=== PATIENT | female | born 1960 | race Caucasian/White ===

== ENCOUNTER 2024-07-22 12:53 | Emergency (ER) | payer OTHER, SELFPAY ==
[2024-07-22 13:10] VITALS: BP 169/91
--- NOTE | 2024-07-22 13:33 | ED.MUSCINJ ---
HPI-Injury
General
Chief Complaint: Fall
Source: patient and family
Exam Limitations: none
Time Seen by Provider: 07/22/24 13:15
Nursing documentation reviewed up to this point in time: agreed with
History of Present Illness-Injury
Is this injury a work related problem?: No
Is pt an associate of [facility]?: No
Initial Injury comments:
63-year-old female presents with left shoulder pain slip and fall last evening she fell into a door jam hit the right side of her head on the door jam and also injured her left shoulder having pain decreased motion of her left shoulder also some
pain in her neck no headache no nausea no vomiting, no blood thinners no alcohol many years ago she had an herniated disc in her neck with pain to the right treated with physical therapy
Past History
Past History
ED Past Medical History: None
ED Past Surgical History: None
Social History
Tobacco: Smoker
Alcohol: None
Drug: None
Living: with family
Review of Systems
Review of Systems
All Other Systems: Not applicable
Constitutional: Denies fever
Respiratory: Reports no symptoms
Cardiac: Reports no symptoms
ABD/GI: Reports no symptoms
Musculoskeletal: Reports joint pain and neck pain
Skin: Reports no symptoms
Neurological: Denies dizzy, headache or weakness
Endocrine: Reports no symptoms
Phy Exam
Physical Exam
Physical Exam:
Physical Exam
General: no apparent distress, not acutely ill
Neck: Superficial abrasion over the right forehead, no midline neck pain, no tongue bite
Heart: s1/s2 regular rate and rhythm, no murmur. equal radial pulses.
Lungs: no acute respiratory distress. clear bilaterally
Neuro: alert and oriented. no focal neurological deficits
Skin: no rash
Psychiatric: well kept. interactive and cooperative
Extremities: Pain with extension and abduction of the left shoulder no bony crepitance able to extend at the elbows bilaterally open cut examiner strengths equal bilaterally
Injury Course
Orders/Labs/Results
Orders:
Orders
07/22/24 12:55
Shoulder, Left 2 View CR [CR Shoulder - Left Min 2 View*] Urgent
Comment:
Reason For Exam: pain, decreased ROM
07/22/24 13:27
Oxycodone/Acetaminophen [Percocet 5/325] 1 tablet PO NOW STA
CR Cervical Spine 2 or 3 Vw Urgent
Comment:
Reason For Exam: fall into door
07/22/24 14:11
Sling Left-Treatment ONCE
Procedures
Splint Check
Splint checked by provider?: No
Splinting/Sling Placement
Left Arm:
Procedure completed by: rn
Pre-splint extermity exam: neurovascular intact
Splint checked by provider?: No
Type of sling: sling fitted
MDM/Problems Addressed
Differential Diagnosis Includes:
Shoulder contusion, humerus fracture, shoulder dislocation AC separation radiculopathy, referred pain from cervical spine
MDM/Problems Addressed:
Shoulder trauma head trauma
Chronic conditions affecting care:
Neck pain
Acute Exacerbation and/or Progression of Chronic Illness:
Neck pain
*Radiology
Radiology exam reviewed: preliminary read by ED provider
*Pulse Oximetry
Patient hypoxic: no
*Critical Care Note
Total Time (30-74mins, 75-104mins- exclusive of procedures): Not Applicable
Update Note
Update Note:
Update x-rays noted no fracture seen, will mobilize with early exercises to prevent frozen shoulder follow-up PCP orthopedics
ED Attending Note
-
Portions of this chart may have been created with voice recognition software.� Occasional wrong word or��sound alike� substitutions may have occurred due to the inherent limitations of voice recognition software.
Discharge Plan
Departure
Prescriptions:
No Action
atorvastatin 20 mg tablet
20 mg PO HS
amlodipine 5 mg tablet
5 mg PO HS
levothyroxine 50 mcg tablet
50 mcg PO DAILY
duloxetine 60 mg capsule,delayed release(DR/EC)
60 mg PO HS
lidocaine [Aspercreme (lidocaine)] 4 % Adhesive Patch,Medicated
1 patch topical DAILY Qty: 10 0RF
omeprazole 40 mg capsule,delayed release(DR/EC)
40 mg PO BID Qty: 60 0RF
Referrals:
Talon Conway MD [Family Provider] -
Interventions
Interventions:
*Risk Screen - Suicide Last Done: 07/22/24 13:10
*General Assessment Last Done: 07/22/24 13:10
*Neglect/Abuse Screening Last Done: 07/22/24 13:10
*ED COVID-19 Vaccine History Last Done: 07/22/24 13:47
ED-Musculoskeletal Assessment Last Done: 07/22/24 13:47
ED- Neurological Assessment Last Done: 07/22/24 13:47
ED-Skin Assessment Last Done: 07/22/24 13:47
Discharge Date and Time
Print Language: ARABIC
[2024-07-22] MEDS: PERCOCET 5/325 1 TABLET PO (13:34)
== END 2024-07-22 14:32 | disposition home or self-care (01) ==
LOC: EMR 12:53
PROVIDERS: EMERGENCY PHYSICIAN Emergency Medicine; FAMILY PHYSICIAN Family Medicine
DX: S00.81XA Abrasion of other part of head, initial encounter (principal); S49.92XA Unspecified injury of left shoulder and upper arm, initial encounter; M54.2 Cervicalgia; M25.512 Pain in left shoulder; W01.198A Fall on same level from slipping, tripping and stumbling with subsequent striking against other object, initial encounter; I10 Essential (primary) hypertension; E78.5 Hyperlipidemia, unspecified; K21.9 Gastro-esophageal reflux disease without esophagitis; M19.90 Unspecified osteoarthritis, unspecified site; E03.9 Hypothyroidism, unspecified; F17.210 Nicotine dependence, cigarettes, uncomplicated
CPT/HCPCS: 99283; 72040; 73030